=== PATIENT | female | born 1960 | race Caucasian/White ===

== ENCOUNTER → 2018-07-23 | Outpatient (CLI) | payer BC ==
[2018-07-23 14:19] LABS: BASOPHILS % (AUTO) 0 % (0-10); EOSINOPHILS # (AUTO) 0.1 10^3/uL (0.0-0.3); EOSINOPHILS % (AUTO) 2 % (0-10); HEMATOCRIT 43 % (35-52); HEMOGLOBIN 14.1 G/DL (11.5-16.0); LYMPHOCYTES # (AUTO) 2.6 X 10^3 (1.0-4.0); LYMPHOCYTES % (AUTO) 33 % (12-44); MEAN CORPUSCULAR HEMOGLOBIN 30 PG (25-34); MEAN CORPUSCULAR HGB CONC 33 G/DL (32-36); MEAN CORPUSCULAR VOLUME 92 FL (80-99); MEAN PLATELET VOLUME 10.8 FL (7.4-10.4); MONOCYTES # (AUTO) 0.6 X 10^3 (0.0-1.0); MONOCYTES % (AUTO) 8 % (0-12); NEUTROPHILS # (AUTO) 4.5 X 10^3 (1.8-7.8); NEUTROPHILS % (AUTO) 58 % (42-75); PLATELET COUNT 223 10^3/uL (130-400); RED CELL DISTRIBUTION WIDTH 13.1 % (10.0-14.5); WHITE BLOOD COUNT 7.8 10^3/uL (4.3-11.0)
[2018-07-23 14:38] LABS: ALANINE AMINOTRANSFERASE 21 U/L (0-55); ALBUMIN 4.2 GM/DL (3.2-4.5); ALKALINE PHOSPHATASE 78 U/L (40-136); BILIRUBIN,TOTAL 0.2 MG/DL (0.1-1.0); BUN/CREATININE RATIO 20; CALCIUM 9.5 MG/DL (8.5-10.1); CARBON DIOXIDE 21 MMOL/L (21-32); CHLORIDE 105 MMOL/L (98-107); GFR ESTIMATED > 60; GLUCOSE 98 MG/DL (70-105); POTASSIUM 4.2 MMOL/L (3.6-5.0); SODIUM 137 MMOL/L (135-145); TOTAL PROTEIN 6.9 GM/DL (6.4-8.2)
[2018-07-23 14:44] LABS: CREATINE KINASE MB 0.6 NG/ML (<6.6)
== END ==
LOC: CARD 13:53
PROVIDERS: ATTEND Nurse Practitioner Family
DX: R07.9 Chest pain, unspecified (principal)
CPT/HCPCS: 36415; 80053; 82553; 84484; 85025; 93005

== ENCOUNTER → 2018-09-09 | Outpatient (CLI) | payer BC ==
--- NOTE | 2018-09-09 16:43 | Diagnostic Imaging Report ---
INDICATION: Routine screening. COMPARISON: 09/13/2011. TECHNIQUE: 2D and 3D bilateral screening mammography was performed with CAD. FINDINGS: Scattered fibroglandular densities are identified bilaterally. The parenchymal pattern is stable. No dominant mass or malignant appearing microcalcifications are seen. The axillae are unremarkable. IMPRESSION: No mammographic features suspicious for malignancy are identified. ACR BI-RADS Category 2: Benign findings. Result letter will be mailed to the patient. Note: At least 10% of breast cancer is not imaged by mammography. Dictated by: Dictated on workstation # [id number]
== END ==
LOC: RAD 11:38
PROVIDERS: ATTEND Nurse Practitioner Family
DX: Z12.31 Encounter for screening mammogram for malignant neoplasm of breast (principal)
CPT/HCPCS: 77067

== ENCOUNTER → 2020-06-30 | Outpatient (CLI) | payer BC ==
--- NOTE | 2020-06-30 13:14 | Diagnostic Imaging Report ---
INDICATION: Routine screening. COMPARISON is made with prior mammogram from 09/09/2018. 2-D and 3-D bilateral screening mammography was performed with CAD. Both breasts are heterogeneous dense, limiting sensitivity of mammography. The parenchymal pattern is stable. No mass or malignant appearing microcalcifications are seen. Axillae are unremarkable. IMPRESSION: BI-RADS Category 1 No mammographic features suspicious for malignancy are identified. ACR BI-RADS Category 1: Negative. Result letter will be mailed to the patient. Note: At least 10% of breast cancer is not imaged by mammography. Dictated by: Dictated on workstation # [id number]
== END ==
LOC: RAD 11:00
PROVIDERS: ATTEND Family Medicine
DX: Z12.31 Encounter for screening mammogram for malignant neoplasm of breast (principal)
CPT/HCPCS: 77063; 77067

== ENCOUNTER → 2020-09-15 | Outpatient (CLI) | payer BC ==
--- NOTE | 2020-09-15 14:44 | Diagnostic Imaging Report ---
INDICATION: Right knee pain. Time of exam 11:03 AM 3 views right knee demonstrate normal alignment. There is medial compartmental degenerative change with joint space narrowing and marginal spurring. There is some spurring of the tibial spines. No fracture, dislocation or effusion is detected. IMPRESSION: Medial compartmental degenerative change. No acute bony abnormality is detected. Dictated by: Dictated on workstation # [id number]
== END ==
LOC: RAD 10:38
PROVIDERS: ATTEND Nurse Practitioner Family
DX: M17.11 Unilateral primary osteoarthritis, right knee (principal)
CPT/HCPCS: 73562

== ENCOUNTER → 2020-11-11 | Outpatient (CLI) | payer BC ==
--- NOTE | 2020-11-11 16:26 | Diagnostic Imaging Report ---
CLINICAL INDICATION: Patient with headache on the left side x1 month. Patient has disk disease. EXAM: MRI of the brain performed without IV contrast. Sequences include axial DWI, ADC map, axial T2, axial FLAIR, axial T1, coronal gradient echo, and sagittal T1. COMPARISON: None. FINDINGS: There is no evidence of acute cerebral infarct, intracranial hemorrhage, or gross mass effect. The brain parenchymal volume appears appropriate for patient's age. There are a few focal areas of high T2 signal white matter changes involving both cerebral hemispheres, likely representing chronic small vessel ischemic disease. There is normal dan-white matter distinction. There is no significant midline shift or herniation. The [place] of [place]ory vascular structures show no gross abnormality as visualized. The pituitary gland, sella, and suprasellar regions are unremarkable as visualized. There is no evidence of hydrocephalus. The basal cisterns are unremarkable. The skull, extracranial soft tissue, and orbits are unremarkable. The paranasal sinuses are unremarkable. Temporal bones show no significant abnormality. IMPRESSION: 1: There is no evidence of acute intracranial process. 2: Mild age-related brain parenchymal changes including mild chronic small vessel ischemic disease. Dictated by: Dictated on workstation # [id number]
--- NOTE | 2020-11-14 18:32 | Diagnostic Imaging Report ---
Clinical indication: Patient with headache involving the left side x1 month. Disk disease. Exam: MRI of the cervical spine performed without IV contrast. Sequences include sagittal T1, sagittal T2, sagittal stir, sagittal T2 fat-sat and axial T2. Of note, axial T2 sequences were performed on 11/14/2020 and added on to this exam. Comparison: MRI of the cervical spine without contrast dated 06/06/2011. Findings: There is no acute cervical spine fracture. There is Modic type II degenerative signal changes involving the C4-C5 and C5-C6 endplates. Limited visualization of posterior fossa and cervical spinal cord shows no significant abnormality. There is no significant paraspinal soft tissue abnormality. There is progression of degenerative spurs anteriorly involving the mid cervical spine. C1-C2: There are degenerative spurs involving the atlantoodontoid interval anteriorly with no significant central canal narrowing. C2-C3: There is mild to moderate bilateral facet arthropathy which is slightly progressed. There is no significant central spinal canal or neural foramen narrowing. C3-C4: There is interval development of a mild diffuse disk bulge and small left-sided uncinate spurs. There is mild left neural foramen narrowing. There is no significant right neural foramen narrowing. There is minimal encroachment upon the central canal anteriorly. C4-C5: There is interval development of grade 1 retrolisthesis of C4 on C5. There is development of a diffuse disk bulge and bilateral uncinate spurs. There is moderate loss of disk space height. There is mild to moderate central canal stenosis, moderate to severe right neural foramen narrowing and mild left neural foramen narrowing which has progressed in the interim. C5-C6: There is interval development of mild grade 1 retrolisthesis of C5 on C6. There is increased size of the diffuse disk bulge with moderate to severe loss of disk space height which has progressed. There is severe bilateral neural foramen narrowing and moderate central canal stenosis which has progressed. C6-C7: There is development of a subtle posterior disk bulge. There is progression of mild bilateral neural foramen narrowing and ligamentum flavum buckling. There is no significant central spinal canal or neural foramen narrowing. C7-T1: There is progression of mild bilateral facet arthropathy. There is no significant central spinal canal or neural foramen narrowing. IMPRESSION: 1: There is no acute cervical spine fracture. 2: There is interval progression of cervical spine degenerative disk disease which is most pronounced at the C3-C6 levels. 3: There is interval progression of grade 1 retrolisthesis of C4 on C5. There is interval development of a diffuse disk bulge with mild to moderate central canal stenosis, moderate to severe right neural foramen narrowing and mild left neural foramen narrowing. 4: There is interval development of grade 1 retrolisthesis of C5 on C6, increased diffuse disk bulge. There is progression of severe C5-C6 bilateral neural foraminal narrowing and moderate central canal stenosis. Dictated by: Dictated on workstation # [id number]
== END ==
LOC: RAD 13:53
PROVIDERS: ATTEND Family Medicine
DX: G31.1 Senile degeneration of brain, not elsewhere classified (principal); I67.82 Cerebral ischemia; M50.31 Other cervical disc degeneration, high cervical region; M50.121 Cervical disc disorder at C4-C5 level with radiculopathy; M50.122 Cervical disc disorder at C5-C6 level with radiculopathy; M43.12 Spondylolisthesis, cervical region; M48.02 Spinal stenosis, cervical region
CPT/HCPCS: 70551; 72141

== ENCOUNTER 2020-12-15 13:14 | Outpatient (RCR) | payer BC | END 2020-12-15 13:45 | disposition home or self-care (01) | PROVIDERS: ATTEND Family Medicine | DX: M54.2 Cervicalgia (principal); R51.9 Headache, unspecified; Z87.39 Personal history of other diseases of the musculoskeletal system and connective tissue ==

== ENCOUNTER → 2022-04-19 | Outpatient (CLI) | payer BC ==
--- NOTE | 2022-04-19 16:54 | Diagnostic Imaging Report ---
MRI RT lower ext joint w/o TECHNIQUE: Multiplanar, multisequence MR imaging of the right knee was performed without contrast. COMPARISON: Right knee radiographs of 09/15/2020 INDICATION: Right knee pain. FINDINGS: MENISCI Medial meniscus: Diffuse degenerative free edge truncation throughout the entire medial meniscus. This is most noticeable in the body of the medial meniscus. Lateral meniscus: Normal. LIGAMENTS ACL: Intact. PCL: Intact. MCL: Intact. LCL: The lateral collateral ligamentous complex is intact. EXTENSOR MECHANISM The extensor mechanism is intact. CARTILAGE Medial compartment: Diffuse full-thickness articular cartilage loss throughout the weightbearing aspects of the medial compartment. Subchondral bone marrow edema is present on both sides of the joint. Lateral compartment: The lateral compartment articular cartilage is preserved without high-grade chondromalacia. Patellofemoral compartment: The patellofemoral articular cartilage is well preserved without high-grade chondromalacia. BONE No fracture, stress fracture or osteonecrosis. SOFT TISSUE Large knee joint effusion. Small Bowers's cyst has fluid tracking away from the sac likely due to rupture. IMPRESSION: 1. Severe degenerative arthritis in the medial compartment with diffuse full-thickness articular cartilage loss. 2. There is associated degenerative tearing throughout the free edge of the medial meniscus. 3. Large knee joint effusion. 4. Small ruptured Bowers's cyst. Dictated by: Dictated on workstation # [id number]
== END ==
LOC: RAD 09:49
PROVIDERS: ATTEND Nurse Practitioner Family
DX: M17.11 Unilateral primary osteoarthritis, right knee (principal); M23.231 Derangement of other medial meniscus due to old tear or injury, right knee; M66.0 Rupture of popliteal cyst
CPT/HCPCS: 73721

== ENCOUNTER 2022-04-26 10:18 | Day surgery (SDC) | payer BC ==
[~2022-04-26] VITALS: Ht 170.2 cm; Wt 80.6 kg
[~2022-04-26 10:18] MED LIST: HEParin 1000 UNIT/ML (10ML VIAL) FOR BOLUS ONE; MIDAZOLAM 5 MG/5 ML (VERSED) VIAL ONE; NITRO DRIP 25000 MCG/D5W 250 ML IV ONE; VERAPAMIL 5 MG/2 ML (CALAN) VIAL IV ONE; fentaNYL INJ 100 MCG/2 ML AMP ONE
--- NOTE | 2022-04-26 10:25 | Pre-Op Note & Conscious Sedat ---
Pre-Operative Progress Note Date H&P Reviewed: Apr 26, 2022 Time H&P Reviewed: 10:24 History & Physical: H&P Reviewed, Patient Examed, No changes noted Pre-Op Diagnosis: Anterior STEMI Conscious Sedation Pre-Proced ASA Score 2 For ASA 3 and 4: Consider anesthesia and medical clearance. Also, for patients with a history of failed moderate sedation consider anesthesia. Airway Lungs Heart ASA score ASA 1: a normal healthy patient ASA 2: a patient with a mild systemic disease (mid diabetes, controlled hypertension, obesity ASA 3: a patient with a severe systemic disease that limits activity (angina, COPD, prior Myocardial infarction) ASA 4: a patient with an incapacitating disease that is a constant threat to life (CHF, renal failure) ASA 5: a moribund patient not expected to survive 24 hrs. (ruptured aneurysm) ASA 6: a declared brain- patient whose organs are being harvested. For emergent operations, add the letter E after the classification Mallampati Classification Grade 1 Sedation Plan Analgesia, Amnesia, Plan communicated to team members, Discussed options with patient/fam, Discussed risks with patient/fam The patient is an appropriate candidate to undergo the planned procedure, sedation, and anesthesia. The patient immediately re-assessed prior to indication. Given her current clinical status, she is considered severely frail. She has no history of heart failure. TERESSA GROSSMAN JR, MD Apr 26, 2022 10:25
--- NOTE | 2022-04-26 10:31 | History & Physical ---
JAIDA FIELDS 04/26/22 1031: History of Present Illness History of Present Illness Reason for visit/HPI Anam is a 62 year old female with no prior cardiac history presenting from [facility] with chest pain and SOB. EKG revealed ST elevation and she was transported to the via [facility] by EMS. Her chest pain began at 8:30am radiating into her shoulder. She had been SOB for two days prior to the onset of chest pain. She has never had these symptoms before. She does not smoke but does have a family history of heart disease. Date of Admission 04/26/22 Date Seen by a Provider: Apr 26, 2022 Time Seen by a Provider: 10:30 I consulted on this patient on 04/26/22 10:27 Attending Physician Nataliya Forte MD Admitting Physician Admitting Physician: Attending Physician: Teressa Subramanian Jr, MD Consult Allergies and Home Medications Allergies Coded Allergies: No Known Drug Allergies (Unverified , 04/26/22) Past Guuqdye-Rtnfql-Uugjia Hx Patient Social History Smoking Status: Never a Smoker Family Medical History Heart Disease Review of Systems Respiratory: dyspnea on exertion, short of breath Cardiovascular: chest pain Physical Exam Vital Signs Capillary Refill : Height, Weight, BMI Height: '" Weight: lbs. oz. kg; BMI Method: TERESSA SUBRAMANIAN JR, MD 04/26/22 1244: History of Present Illness History of Present Illness Reason for visit/HPI Dr. Subramanian, I had the pleasure of seeing Zabrina in the cardiac catheterization laboratory today. She has no known history of coronary artery disease but does have a cardiac risk factor of hypertension. For the past couple of days she has been experiencing increasing shortness of breath. She denies a cough, fever or chills. She did not seek medical attention. Then this morning she was making her bed and suddenly developed substernal chest tightness. This was in the center of her chest. This radiated to her shoulder. This may have made her feel somewhat more short of breath. She became concerned and went to the emergency room at [facility] for further evaluation. Her el ectrocardiogram showed sinus rhythm with ST elevation in V1 and V2 and ST depression in the lateral limb leads and lateral chest leads. A code STEMI was called and she was transported to our hospital for emergency cardiac catheterization. She denies any previous history of this sort of chest discomfort. She denies paroxysmal nocturnal dyspnea, insomnia, palpitations, lightheadedness, syncope, or ankle edema. Allergies and Home Medications Allergies Coded Allergies: No Known Drug Allergies (Unverified , 04/26/22) Patient Home Medication List Home Medication List Reviewed: Yes Past Kdepdec-Qmzpxc-Qxtnuo Hx Patient Social History Marrital Status: Smoking Status: Former Smoker Family Medical History Heart Disease Review of Systems Constitutional: see HPI Review of 10 organ systems is as per the history of present illness, otherwise negative. Physical Exam General Appearance: No Apparent Distress Comments Dr. Subramanian: General: Alert. No acute distress. Well nourished and appears stated age. Eye: Extraocular movements are intact. Conjunctivae are clear. There are no xanthelasma. HENT: Normocephalic. Atraumatic. Carotid pulsations 2/2 without bruits. Neck: Jugular venous pressure does not appear elevated. No thyromegaly appreciated. Respiratory: Lungs are clear to auscultation. Respirations are non-labored. Breath sounds are equal. Symmetrical chest wall expansion. Cardiovascular: Normal rate. Regular rhythm. No murmur. No gallop. Point of maximal impulse is not appear displaced. Good pulses equal in all extremities. No edema. Gastrointestinal: Soft. Normal bowel sounds. Skin: Skin turgor is normal. There is no pallor. Musculoskeletal: No kyphosis or scoliosis appreciated. Neurologic: Alert and oriented to person, place, time. Cranial nerves 3-12 appear grossly intact. The patient has good motor tone strength in the upper and lower extremities bilaterally. Psychiatric: Cooperative. Appropriate mood & affect. Assessment/Plan Assessment and Plan Problems: (1) Chest pain Assessment & Plan: Exact etiology unclear. She underwent a cardiac catheterization that showed mild to moderate disease in the left anterior descending coronary artery but no acute vessel closure and no obstructive disease. I suspect her chest discomfort could be due to gastroesophageal reflux disease. She was taking famotidine at home. I will change this over to pantoprazole. I have also ordered a D-dimer to screen for possible pulmonary embolism. (2) Coronary artery disease with unstable angina pectoris Assessment & Plan: She does have coronary artery disease noted at cardiac catheterization but as above, this is nonobstructive. She could have possibly had coronary spasm at the site of the atherosclerosis leading to the ST changes and her chest discomfort. However, this does not appear to be an ST elevation myocardial infarction. I recommend she start on aspirin and statin medication. I will resume her beta-ej that she was taking at home. (3) Primary hypertension Assessment & Plan: I will resume the metoprolol that she was taking at home. (4) Gastroesophageal reflux disease without esophagitis Assessment & Plan: I will intensify her therapy by changing her H2 ej over to a proton pump inhibitor in the event the reflux disease is causing or at least contributing to her chest discomfort. (5) Acquired hypothyroidism Assessment & Plan: I have ordered a TSH level. Resume thyroud medication. Admission Diagnosis Admission Status: Observation Supervisory-Addendum Brief Verification & Attestation Participated in pt care: history, MDM, physical Personally performed: exam, history, MDM Care discussed with: Medical Student Procedures: n/a Results interpretation: Verified all documentation I independently performed my own history and physical and physical examination. I formulated my own impression and plan. I also reviewed the documentation of the medical student. JAIDA FIELDS Apr 26, 2022 10:31 TERESSA SUBRAMANIAN JR, MD Apr 26, 2022 12:44
[2022-04-26] MEDS ORDERED: NS IV 1000 ML 1,000 ML ONE (10:50)
[2022-04-26] MEDS ORDERED: LIDOCAINE 1% INJ 30 ML (XYLOCAINE) VIAL ONE (10:50)
[2022-04-26] MEDS ORDERED: HEParin (CATH LAB) 2,000 ML IV ONE (10:50)
[2022-04-26] MEDS ORDERED: ZOLPIDEM 5 MG (AMBIEN) TAB PO PRN (11:00)
[2022-04-26] MEDS ORDERED: ACETAMINOPHEN 500 MG TAB (TYLENOL) PO PRN (11:00)
[2022-04-26] MEDS ORDERED: ANTACID SUSP 30 ML UDC (MYLANTA) PO PRN (11:00)
--- NOTE | 2022-04-26 11:42 | Cardiac Cath Report ---
CARDIAC CATHETERIZATION DATE OF PROCEDURE: 04/26/2022 INDICATION: Abnormal electrocardiogram consistent with a possible anterior ST elevation myocardial infarction. HISTORY: The patient is a 62 year old female with no previously known history of coronary artery disease. She presented to [facility] earlier this morning with chest pain. Her electrocardiogram showed anterior ST elevation with lateral ST depression. A code STEMI was called from the outside hospital and she was transferred to our hospital for emergent cardiac catheterization. Given her current clinical status, she is considered severely frail. She has no history of heart failure. PROCEDURES PERFORMED: 1. Left heart catheterization with hemodynamic measurements. 2. Diagnostic [place]-cree coronary angiography. PROCEDURE DESCRIPTION: After informed consent and in the fasting state, left heart catheterization was performed through the right radial artery utilizing a 6 Israeli system by percutaneous approach. A 5 Israeli JR4 catheter and a 6 Israeli CLS 3.5 guide catheter were utilized for the diagnostic portion of the procedure. All catheters were exchanged over a guidewire. Following the procedure, a vascular band was applied to the radial artery access site and the sheath was removed with good hemostasis. RESULTS: HEMODYNAMICS: The aortic pressure was 109/62 mmHg. The left ventricular pressure was 124/0 mmHg with a left ventricular end-diastolic pressure of 5 mmHg. There was no significant pressure gradient upon pullback across the aortic valve. CORONARY ANGIOGRAPHY: Left main coronary artery: Free of significant disease. Left anterior descending coronary artery: There was a 50% stenosis in the mid segment at the takeoff of the first septal alley tender with JESSICA-3 flow. Left circumflex coronary artery: Free of significant disease. Right coronary artery: Dominant and free of significant disease. IMPRESSION: 1. Normal left heart pressures. 2. There was a 50% stenosis in the mid left anterior descending coronary artery but no evidence of an acute thrombotic occlusion to explain the ST elevation on the electrocardiogram. 3. I will obtain an echocardiogram later today to assess her left ventricular systolic function. 4. I suspect the patient may have had noncardiac chest pain. Certain portions of this document may have been dictated utilizing voice recognition technology. Inherent to this technology, typographical and grammatical errors may exist. As much as I am diligent to identify and correct these mistakes, some errors may remain in the document. TERESSA GROSSMAN JR, MD Apr 26, 2022 11:42
[2022-04-26] MEDS ORDERED: PANTOPRAZOLE 40 MG (PROTONIX) TAB PO NR (11:45)
[2022-04-26 13:23] LABS: BASOPHILS % (AUTO) 0 % (0-10); EOSINOPHILS # (AUTO) 0.1 10^3/uL (0.0-0.3); EOSINOPHILS % (AUTO) 0 % (0-10); HEMATOCRIT 42 % (35-52); HEMOGLOBIN 13.8 g/dL (11.5-16.0); LYMPHOCYTES # (AUTO) 1.9 10^3/uL (1.0-4.0); LYMPHOCYTES % (AUTO) 14 % (12-44); MEAN CORPUSCULAR HEMOGLOBIN 31 pg (25-34); MEAN CORPUSCULAR HGB CONC 33 g/dL (32-36); MEAN CORPUSCULAR VOLUME 94 fL (80-99); MEAN PLATELET VOLUME 9.9 fL (9.0-12.2); MONOCYTES # (AUTO) 1.1 10^3/uL (0.0-1.0); MONOCYTES % (AUTO) 8 % (0-12); NEUTROPHILS # (AUTO) 10.4 10^3/uL (1.8-7.8); NEUTROPHILS % (AUTO) 77 % (42-75); PLATELET COUNT 147 10^3/uL (130-400); WHITE BLOOD COUNT 13.6 10^3/uL (4.3-11.0)
[2022-04-26 13:27] LABS: ALBUMIN 3.7 GM/DL (3.2-4.5); POTASSIUM 3.9 MMOL/L (3.6-5.0)
[2022-04-26 13:28] LABS: CALCIUM 8.8 MG/DL (8.5-10.1)
[2022-04-26 13:30] LABS: TOTAL PROTEIN 6.4 GM/DL (6.4-8.2)
[2022-04-26 13:31] LABS: BILIRUBIN,TOTAL 0.4 MG/DL (0.1-1.0)
[2022-04-26 13:33] LABS: CREATININE SERUM 0.66 MG/DL (0.60-1.30)
[2022-04-26] MEDS ORDERED: IOHEXOL 350 MG/ML 100 ML (OMNIPAQUE 350) VIAL IV ONE (14:00)
[2022-04-26] MEDS ORDERED: NS 100 ML (IVPB) BAG IV ONE (14:00)
[2022-04-26] MEDS ORDERED: ENOXAPARIN 40 MG/0.4 ML (LOVENOX) SYR SC SCH (14:00)
[2022-04-26] MEDS ORDERED: HOLD METFORMIN - RECEIVED CONTRAST 20 ML VIAL IV SCH (14:00)
[2022-04-26] MEDS ORDERED: FAMO20TA3 PO (14:25)
[2022-04-26] MEDS ORDERED: LEVO50TA6 PO ×2 (14:25)
[2022-04-26] MEDS ORDERED: MTP25TSR PO (14:25)
[2022-04-26] MEDS ORDERED: CHOL500050 PO (14:25)
[2022-04-26] MEDS ORDERED: CELE-63 PO (14:25)
[2022-04-26] MEDS ORDERED: ESTR1TAB27 PO (14:25)
[2022-04-26] MEDS ORDERED: OMEG12002 PO (14:25)
[2022-04-26] MEDS ORDERED: HYDR25TA4 PO (14:25)
[2022-04-26] MEDS ORDERED: MELA10TA2 PO (14:25)
--- NOTE | 2022-04-26 14:38 | Diagnostic Imaging Report ---
INDICATION: Elevated D-dimer, dyspnea TECHNIQUE: Multiple contiguous axial images were obtained through the chest after uneventful bolus administration of intravenous contrast. 3D reconstructed CTA MIP acquisitions were also performed. Auto Exposure Controls were utilized during the CT exam to meet ALARA standards for radiation dose reduction. COMPARISON: There is no prior CT for comparison. There are bilateral pulmonary emboli, including saddle component. There is some RV dilatation and septal bowing suggesting right heart strain. There is no adenopathy in the mediastinum or erica. There are some coronary calcifications. The thoracic aorta shows no aneurysm or dissection. Great vessel origins are patent. There is no pleural or pericardial fluid. Visualized portions of the upper abdomen appear unremarkable. Lung parenchymal windows demonstrated no pulmonary parenchymal infiltrates or discrete nodules. IMPRESSION: Bilateral pulmonary emboli, including saddle component, with evidence of some degree of right heart strain. Results were called to the referring physician at the time of dictation. Dictated by: Dictated on workstation # [id number]
[2022-04-26] MEDS: APIXABAN 5 MG (ELIQUIS) TABLET PO SCH ×2 (15:05→21:20)
[2022-04-26] MEDS: NS IV 1000 ML 1,000 ML IV SCH ×2 (18:43→21:00)
--- NOTE | 2022-04-26 19:51 | History & Physicial ---
History of Present Illness History of Present Illness Reason for visit/HPI Anam is a 62 y/o female who is known to me from clinic. She presented to her local hospital with acute onset of shortness of breath, chest pain, diaphoresis and nausea that started early this morning while making her bed. She reports that she had been having intermittent episodes of shortness of breath over the past week. She notes that she had recently traveled by vehicle with her spouse to the [facility]. She reports that the shortness of breath started after the travel by a week or so. [place], thought to have had a heart attack and was transferred to the care of Dr. Subramanian for emergent eval and heart c atheterization. The heart cath did not reveal any obstructive disease and further work-up revealed pulmonary emboli. She was admitted to the icu for management. She currently is not complaining of shortness of breath or chest pain, does have some aching in her lower extremities. Date of Admission 04/26/2022 Date Seen by a Provider: Apr 26, 2022 Time Seen by a Provider: 18:30 Attending Physician Bobby Forte MD Admitting Physician Admitting Physician: Dr. Subramanian Attending Physician: Werner Subramanian Jr, MD Consult Allergies and Home Medications Allergies Coded Allergies: No Known Drug Allergies (Unverified , 04/26/22) Patient Home Medication List Home Medication List Reviewed: Yes Celecoxib (Celecoxib) 200 Mg Capsule, 200 MG PO DAILY, (Reported) Entered as Reported by: SKYE BURNETT on 04/26/221424 Last Action: Held Cholecalciferol (Vitamin D3) (Vitamin D3) 125 Mcg (5000 Unit) Capsule, 125 MCG PO HS, (Reported) Entered as Reported by: SKYE BURNETT on 04/26/221424 Last Action: Reviewed Estradiol (Estrace Tablet) 1 Mg Tablet, 1 MG PO DAILY, (Reported) Entered as Reported by: SKYE BURNETT on 04/26/221424 Last Action: Held Famotidine (Acid Physical Therapist Technician (FAMOTIDINE)) 20 Mg Tablet, 20 MG PO DAILY, (Reported) Entered as Reported by: SKYE BURNETT on 04/26/221424 Last Action: Held Hydrochlorothiazide (Hydrochlorothiazide) 25 Mg Tablet, 12.5 MG PO DAILY, (Reported) Entered as Reported by: SKYE BURNETT on 04/26/221424 Last Action: Reviewed Levothyroxine Sodium (Levothyroxine Sodium) 50 Mcg Tablet, 50 MCG PO ESTEVES,MO,WE,FR,SA, (Reported) Entered as Reported by: SKYE BURNETT on 04/26/221424 Last Action: Continued Levothyroxine Sodium (Levothyroxine Sodium) 50 Mcg Tablet, 75 MCG PO , (Reported) Entered as Reported by: SKYE BURNETT on 04/26/221424 Last Action: Continued Melatonin (Melatonin) 10 Mg Tablet, 10 MG PO HS, (Reported) Entered as Reported by: SKYE BURNETT on 04/26/221424 Last Action: Continued Metoprolol Succinate (Metoprolol Succinate) 25 Mg Tab.er.24h, 25 MG PO HS, (Reported) Entered as Reported by: SKYE BURNETT on 04/26/221424 Last Action: Continued Frannie-3/Dha/Epa/Fish Oil (Fish Oil 1,200 mg Softgel) 1,200 Mg (144 Mg-216 Mg) Capsule, 1,200 MG PO HS, (Reported) Entered as Reported by: SKYE BURNETT on 04/26/221424 Last Action: Converted Past Uxsbogl-Kpcbke-Wqcccg Hx Patient Social History Marrital Status: Number of Children: 1 Living Status: [place] Smoking Status: Former Smoker Have you traveled recently?: Yes Where was recent travel?: [facility] ([place]) Alcohol Use?: Yes Substance type: Caffeine Pt feels they are or have been: No Immunizations Up To Date Date of Influenza Vaccine: Apr 10, 2022 Seasonal Allergies Seasonal Allergies: Yes Surgeries Yes Hysterectomy (2019), Orthopedic (2020) Respiratory No Currently Using CPAP: No Currently Using BIPAP: No Cardiovascular Yes Hypertension Neurological No Reproductive System : No Genitourinary No Gastrointestinal Yes Gastroesophageal Reflux Musculoskeletal Yes Arthritis Endocrine History of Endocrine Disorders: Yes Endocrine Disorders: Hypothyroidsim Are Your Blood Sugars Over 250: No HEENT History of HEENT Disorders: No Loss of Vision: Denies Hearing Impairment: Denies Cancer No Psychosocial History of Psychiatric Problem: No Integumentary History of Skin or Integumenta: No Blood Transfusions History of Blood Disorders: No Adverse Reaction to a Blood Tr: No Reviewed Nursing Assessment Reviewed/Agree w Nursing PMH: Yes Family Medical History Significant Family History: Heart Disease, Diabetes, Hypertension Review of Systems Constitutional: No chills; diaphoresis (prior to admission); No dizziness, No fever, No malaise, No weakness EENTM: No hearing loss, No hoarseness, No throat pain Respiratory: No cough; dyspnea on exertion; No short of breath, No wheezing Cardiovascular: No chest pain (pt had shortness of breath and chest pain prior to admission) Gastrointestinal: No abdominal pain, No constipation, No diarrhea, No nausea Genitourinary: no symptoms reported : No Musculoskeletal: No back pain; joint pain (right knee pain) Skin: no symptoms reported Psychiatric/Neurological: No Symptoms Reported All Other Systems Reviewed Negative Unless Noted: Yes Physical Exam Vital Signs Vital Signs - First Documented 04/26/22 04/26/22 04/26/22 11:10 11:15 11:23 Temp 36.4 Pulse 109 Resp 13 B/P (MAP) 120/79 (93) Pulse Ox 95 O2 Delivery Nasal Cannula O2 Flow Rate 2.00 Capillary Refill : Less Than 3 Seconds Height, Weight, BMI Height: '" Weight: lbs. oz. kg; 28.16 BMI Method: General Appearance: No Apparent Distress, WD/WN HEENT: PERRL/EOMI, Pharynx Normal Neck: Full Range of Motion, Supple Respiratory: Chest Non Tender, Lungs Clear, Normal Breath Sounds, No Accessory Muscle Use, No Respiratory Distress Cardiovascular: Regular Rate, Rhythm Gastrointestinal: Normal Bowel Sounds, Non Tender, Soft Rectal: Deferred Back: Normal Inspection Extremity: Normal Capillary Refill, Normal Range of Motion, No Pedal Edema, Other (slightly ttp right popliteal fossa and left popliteal fossa) Neurologic/Psychiatric: Alert, Oriented x3, No Motor/Sensory Deficits, Normal Mood/Affect Skin: Normal Color, Warm/Dry Lymphatic: No Adenopathy Assessment/Plan Assessment and Plan as documented below Problems: (1) Pulmonary emboli Status: Acute Qualifiers: Qualified Codes: I26.92 - Saddle embolus of pulmonary artery without acute cor pulmonale Assessment & Plan: Bilateral pulmonary embolism with saddle component. pt was started on eliquis, will continue with this treatment and pt to be on eliquis for at least 6 months post embolism. Lower extremity US pending for the morning. CT scan findings as follows: There are bilateral pulmonary emboli, including saddle component. There is some RV dilatation and septal bowing suggesting right heart strain. There is no adenopathy in the mediastinum or erica. There are some coronary calcifications. The thoracic aorta shows no aneurysm or dissection. Great vessel origins are patent. There is no pleural or pericardial fluid. Visualized portions of the upper abdomen appear unremarkable. Lung parenchymal windows demonstrated no pulmonary parenchymal infiltrates or discrete nodules. IMPRESSION: Bilateral pulmonary emboli, including saddle component, with evidence of some degree of right heart strain. (2) Chest pain Status: Acute Qualifiers: Qualified Codes: R07.89 - Other chest pain Assessment & Plan: Heart catheterization - per Dr. Subramanian report - mild to mod disease LAD. DDimer positive Pulmonary embolus (3) Coronary artery disease with unstable angina pectoris Status: Acute Qualifiers: Qualified Codes: I25.110 - Atherosclerotic heart disease of [place] coronary artery with unstable angina pectoris Assessment & Plan: As above -non obstructive mild to mod disease of LAD - will need blood pressure control, cholesterol to be controlled with statin therapy (4) Primary hypertension Status: Chronic Assessment & Plan: Pt on hctz and metoprolol at home, the metoprolol was restarted on admission (5) Gastroesophageal reflux disease without esophagitis Status: Chronic Assessment & Plan: pt changed from pepcid to pantoprazole (6) Acquired hypothyroidism Status: Chronic Assessment & Plan: resumed home levothyroxine tonight - monitor labs, add Free T4 to blood in lab Admission Diagnosis Admission Status: Other BOBBY FORTE MD Apr 26, 2022 19:51
[2022-04-26] MEDS ORDERED: ROSUVASTATIN 20 MG (CRESTOR) TABLET PO SCH (21:00)
[2022-04-26] MEDS ORDERED: ROSUVASTATIN 10 MG (CRESTOR) TABLET PO SCH (21:00)
[2022-04-26] MEDS ORDERED: OMEGA 3 (FISH OIL) 1000 MG CAP PO SCH (21:00)
[2022-04-26] MEDS ORDERED: MELATONIN 10 MG TABLET PO SCH (21:00)
[2022-04-26] MEDS ORDERED: NON-FORMULARY MEDICATION 1 EA EA (Omega-3/Dha/Epa/Fish Oil (Fish Oil 1,200 mg Softgel) 1,2 PO SCH (21:00)
[2022-04-27 05:57] LABS: ALBUMIN 3.6 GM/DL (3.2-4.5); HEMATOCRIT 40 % (35-52); HEMOGLOBIN 13.2 g/dL (11.5-16.0); MEAN CORPUSCULAR HEMOGLOBIN 31 pg (25-34); MEAN CORPUSCULAR HGB CONC 33 g/dL (32-36); MEAN CORPUSCULAR VOLUME 94 fL (80-99); MEAN PLATELET VOLUME 10.7 fL (9.0-12.2); PLATELET COUNT 166 10^3/uL (130-400); POTASSIUM 4.1 MMOL/L (3.6-5.0); WHITE BLOOD COUNT 11.1 10^3/uL (4.3-11.0)
[2022-04-27 05:58] LABS: CALCIUM 8.9 MG/DL (8.5-10.1)
[2022-04-27 06:00] LABS: TOTAL PROTEIN 6.1 GM/DL (6.4-8.2)
[2022-04-27 06:01] LABS: BILIRUBIN,TOTAL 0.5 MG/DL (0.1-1.0)
[2022-04-27 06:03] LABS: CREATININE SERUM 0.76 MG/DL (0.60-1.30)
[2022-04-27] MEDS ORDERED: LEVOTHYROXINE 50 MCG (LEVOTHROID) TAB PO SCH (06:30)
[2022-04-27] MEDS: APIXABAN 5 MG (ELIQUIS) TABLET PO SCH (08:20)
--- NOTE | 2022-04-27 08:23 | Cardiology Progress Note ---
Subjective Date Seen by Provider: Apr 27, 2022 Time Seen by Provider: 07:50 Subjective/Events-last exam Pt appears comfortable this a.m. She denies SOB, chest pain, and syncope. She does admit to feeling palpitations pretty frequently, usually when she is laying in bed at night. These last for a few seconds at a time. She has taken a water pill in the past and recently experienced some edema while traveling, but does not currently have edema. Dr. Subramanian: I am following her due to coronary artery disease and pulmonary embolism. Her chest discomfort and dyspnea have resolved. Today she states she has had a long history of palpitations. She will feel a fluttering in her chest mainly at night while she is trying to go to sleep. She denies associated complaints. She has not brought this to the attention of her primary provider in the past. She denies syncope or ankle edema. Certain portions of this document may have been dictated utilizing voice recognition technology. Inherent to this technology, typographical and grammatical errors may exist. As much as I am diligent to identify and correct these mistakes, some errors may remain in the document. Focused Exam Respiratory: Lungs Clear, Normal Breath Sounds, No Accessory Muscle Use, No Respiratory Distress Cardiovascular: Regular Rate, Rhythm, No Murmur Skin: normal color, warm/dry Objective-Cardiology Exam Last Set of Vital Signs Vital Signs 04/27/22 04/27/22 04/27/22 07:47 08:00 08:23 Temp 36.5 Pulse 70 Resp 16 B/P (MAP) 115/69 (84) Pulse Ox 95 O2 Delivery Room Air O2 Flow Rate 2.00 I&O Intake and Output 04/27/22 00:00 Intake Total 800 ml Balance 800 ml Intake Oral 800 ml # Voids 2 Daily Weight Change No General: Alert, Oriented X3, Cooperative, No Acute Distress HEENT: Atraumatic, EOMI Neck: Supple Lungs: Clear to Auscultation, Normal Air Movement Heart: Regular Rate, No Murmurs Abdomen: Soft, No Tenderness Extremities: No Edema Skin: No Significant Lesion Neuro: Normal Speech, Normal Tone Psych/Mental Status: Mental Status NL, Mood NL Other physical findings Dr. Subramanian: General: Alert. No acute distress. Eye: No xanthelasma. HENT: Normocephalic. Neck: Jugular venous pressure does not appear elevated. Respiratory: Lungs are clear to auscultation. Respirations are non-labored. Breath sounds are equal. Symmetrical chest wall expansion. Cardiovascular: Normal rate. Regular rhythm. No murmur. No gallop. No edema. Gastrointestinal: Soft. Normal bowel sounds. Skin: Warm. Dry. Neurologic: Alert and oriented to person, place, time. Cranial nerves 3-11 grossly intact. Psychiatric: Cooperative. Appropriate mood & affect. Results Lab Laboratory Tests 04/26/22 13:08 04/27/22 05:11 A/P-Cardiology Admission Diagnosis (1) Chest pain Status: Acute Qualifiers: Qualified Codes: R07.89 - Other chest pain (2) Pulmonary embolism with acute cor pulmonale (3) Coronary artery disease with unstable angina pectoris Status: Acute Qualifiers: Qualified Codes: I25.110 - Atherosclerotic heart disease of [place] coronary artery with unstable angina pectoris (4) Primary hypertension Status: Chronic (5) Gastroesophageal reflux disease without esophagitis Status: Chronic Assessment/Plan (1) Chest pain Assessment & Plan: D-Dimer elevation revealed yesterday; CT showed bilateral pulmonary emboli with possible saddle embolus. Eliquis was started. Venous Doppler study done this a.m. (2) Coronary artery disease with unstable angina pectoris Assessment & Plan: She does have coronary artery disease noted at cardiac catheterization but as above, this is nonobstructive. She was started on aspirin and statin medication. Resumed her beta-ej that she was taking at home. (3) Primary hypertension Assessment & Plan: Resumed the metoprolol that she was taking at home. (4) Gastroesophageal reflux disease without esophagitis Assessment & Plan: switched to pantoprazole (5) Acquired hypothyroidism Assessment & Plan: Resumed thyroid medication. (6) Palpitations Assessment & Plan: May require outpatient monitor. Continue telemetry for now. Diagnosis/Problems Diagnosis/Problems (1) Pulmonary embolism with acute cor pulmonale Assessment & Plan: In retrospect, she did have a long drive about 2 weeks ago. She was also on estrogen replacement therapy but had started to taper this on her own. She is on Eliquis but this may be too expensive for her. I will change this over to Xarelto which she can get through the [address] plan at a markedly reduced rate. (2) Chest pain Status: Acute Assessment & Plan: I suspect this was related to the pulmonary embolism and not coronary artery disease. Qualifiers: Qualified Codes: R07.89 - Other chest pain (3) Coronary artery disease with unstable angina pectoris Status: Acute Assessment & Plan: She has moderate disease of the left anterior descending coronary artery but did not have a myocardial infarction and she has normal ejection fraction. Since she is on Xarelto for the pulmonary embolism, I will hold off on starting aspirin. When she completes the course of therapy for the pulmonary embolism and stops her oral anticoagulation, I would consider starting low strength aspirin. I did start a statin medication due to the coronary artery disease. She was already taking beta-ej at home for hypertension. I will plan to see her in the office in 1 month for follow-up. Qualifiers: Qualified Codes: I25.110 - Atherosclerotic heart disease of [place] coronary artery with unstable angina pectoris (4) Primary hypertension Status: Chronic Assessment & Plan: Continue current outpatient antihypertensive medication. (5) Palpitations Assessment & Plan: Etiology unclear. There is no evidence of Dqhhy-Vbolxzlzh-Nhvsl, Brugada syndrome, or prolonged or short QT on her resting electrocardiogram. From her description, this may just be due to isolated [place] ture beats. If this continues following discharge, we could always consider some sort of external event recorder. (6) Mixed hyperlipidemia Assessment & Plan: She has been started on statin medication in light of the elevated LDL and coronary artery disease detected at cardiac catheterization during this admission. (7) Gastroesophageal reflux disease without esophagitis Status: Chronic Assessment & Plan: I had thought the reflux disease might be contributing to her chest discomfort but now she has been found to have a pulmonary embolism which probably explains her symptoms at the time of admission. She could probably go back to taking famotidine which she was taking prior to admission. Supervisory-Addendum Brief Verification & Attestation Participated in pt care: history, MDM, physical Personally performed: exam, history, MDM, supervision of care Care discussed with: Medical Student Procedures: n/a Results interpretation: Verified all documentation I independently performed my own history and physical and physical examination. I formulated my own impression and plan. I also reviewed the documentation of the medical student. JAIDA FIELDS Apr 27, 2022 08:23 TERESSA SUBRAMANIAN JR, MD Apr 27, 2022 09:05
--- NOTE | 2022-04-27 08:25 | Diagnostic Imaging Report ---
PROCEDURE: US Venous Lower Ext Oracio. TECHNIQUE: Multiple real-time grayscale images were obtained over the lower extremities in various projections, bilaterally. Additional duplex Doppler and color Doppler images were also obtained. INDICATION: Pulmonary embolus. Lower leg pain Bilateral lower extremity venous Doppler 04/27/2022. TECHNIQUE: Waveform and spectral analysis of the lower extremity venous structures. FINDINGS: There is no evidence for deep vein thrombosis with normal compressibility, augmentation and spontaneity of all visualized venous structures. IMPRESSION: 1. No evidence for deep vein thrombosis. Dictated by: Dictated on workstation # [id number]
[2022-04-27] MEDS ORDERED: PANTOPRAZOLE 40 MG (PROTONIX) TAB PO SCH (09:00)
[2022-04-27] MEDS ORDERED: ASPIRIN E.C. 81 MG (ECOTRIN) TAB PO SCH (09:00)
[2022-04-27] MEDS ORDERED: RIVA15TA2 PO (09:00)
[2022-04-27] MEDS ORDERED: ACHD5005 PO (09:12)
[2022-04-27] MEDS ORDERED: ROSU20TA32 PO (09:12)
--- NOTE | 2022-04-27 09:17 | Discharge Summary ---
Diagnosis/Chief Complaint Date of Admission Date of Discharge Discharge Date: Apr 27, 2022 Discharge Time: 1030 Reason Hospital Visit Anam is a 62 y/o female who is known to me from clinic. She presented to her local hospital with acute onset of shortness of breath, chest pain, diaphoresis and nausea that started early this morning while making her bed. She reports that she had been having intermittent episodes of shortness of breath over the past week. She notes that she had recently traveled by vehicle with her spouse to the [facility]. She reports that the shortness of breath started after the travel by a week or so. She was evaluated in the [place] ER, thought to have had a heart attack and was transferred to the care of Dr. Subramanian for emergent eval and heart catheterization. The heart cath did not reveal any obstructive disease and further work-up revealed pulmonary emboli. She was admitted to the icu for management. She currently is not complaining of shortness of breath or chest pain, does have some aching in her lower extremities. Discharge Summary Discharge Physical Examination Allergies: Coded Allergies: No Known Drug Allergies (Unverified , 04/26/22) Vitals & I&Os Vital Signs Date Time Temp Pulse Resp B/P (MAP) Pulse Ox O2 Delivery O2 Flow Rate FiO2 04/27/22 08:23 95 Room Air 04/27/22 08:00 70 16 115/69 (84) 2.00 04/27/22 07:47 36.5 Hospital Course Pending Labs Laboratory Tests 04/27/22 05:11: White Blood Count 11.1, Red Blood Count 4.27, Hemoglobin 13.2, Hematocrit 40, Mean Corpuscular Volume 94, Mean Corpuscular Hemoglobin 31, Mean Corpuscular Hemoglobin Concent 33, Red Cell Distribution Width 13.2, Platelet Count 166, Mean Platelet Volume 10.7, Sodium Level 141, Potassium Level 4.1, Chloride Level 110, Carbon Dioxide Level 20, Anion Gap 11, Blood Urea Nitrogen 11, Creatinine 0.76, Estimat Glomerular Filtration Rate 87, BUN/Creatinine Ratio 14, Glucose Level 114, Calcium Level 8.9, Corrected Calcium 9.2, Total Bilirubin 0.5, Aspartate Amino Transf (AST/SGOT) 39, Alanine Aminotransferase (ALT/SGPT) 72, Alkaline Phosphatase 71, Total Protein 6.1, Albumin 3.6 Discharge Instructions to patient/family Please see electronic discharge instructions given to patient. Discharge Medications Reviewed and agree with Discharge Medication list on patient's Discharge Instruction sheet BOBBY RUFF MD Apr 27, 2022 09:17
--- NOTE | 2022-04-27 09:17 | Discharge Inst-Simple/Standard ---
Discharge Inst-Standard Reconcile Patient Problems Problems Reviewed?: Yes Discharge Medications New, Converted or Re-Newed RX: Transmitted to Pharmacy Patient Instructions/Follow Up Plan of Care/Instructions/FU: follow up with lupe langford beginning of may we will get you scheduled in with hematology follow up with dr. meehan per patient request in the next few months Activity as Tolerated: Yes Discharge Diet: Low Fat/Low Cholesterol Return to The Hospital For: acute worsening shortness of breath, chest pain, or other concerns for lifethreatening illness BOBBY RUFF MD Apr 27, 2022 09:17
[2022-04-27] MEDS ORDERED: RIVAROXABAN 15 MG TABLET (XARELTO) PO SCH (19:00)
[2022-04-27] MEDS ORDERED: VITAMIN D3 125 MCG (5,000 UNITS) CAPSULE PO SCH (21:00)
[2022-05-01] MEDS ORDERED: LEVOTHYROXINE 50 MCG (LEVOTHROID) TAB PO SCH (06:30)
[2022-05-04] MEDS ORDERED: APIXABAN 5 MG (ELIQUIS) TABLET PO SCH (09:00)
== END 2022-04-27 09:37 | disposition home or self-care (01) ==
LOC: CATH 10:18 → ICU 11:05 → CATH 04-27 09:37
PROVIDERS: ATTEND Internal Medicine Cardiovascular Disease
DX: I26.92 Saddle embolus of pulmonary artery without acute cor pulmonale (principal); I25.110 Atherosclerotic heart disease of native coronary artery with unstable angina pectoris; I10 Essential (primary) hypertension; K21.9 Gastro-esophageal reflux disease without esophagitis; E03.9 Hypothyroidism, unspecified; E78.2 Mixed hyperlipidemia; Z79.890 Hormone replacement therapy; Z79.899 Other long term (current) drug therapy; Z87.891 Personal history of nicotine dependence
CPT/HCPCS: 71275; 80053 ×2; 80061; 84443; 85025; 85027; 85379; 87081; 93005; 93458; 93970; C1887; C1894; C8929; 36415; 93306

== ENCOUNTER → 2022-05-21 | Outpatient (CLI) | payer BC ==
[~2022-05-21] MED LIST changes: +ACHD5005 PO; +CELE-63 PO; +CHOL500050 PO; +ESTR1TAB27 PO; +FAMO20TA3 PO; -HEParin 1000 UNIT/ML (10ML VIAL) FOR BOLUS ONE; +HYDR25TA4 PO; +LEVO50TA6 PO; +MELA10TA2 PO; -MIDAZOLAM 5 MG/5 ML (VERSED) VIAL ONE; +MTP25TSR PO; -NITRO DRIP 25000 MCG/D5W 250 ML IV ONE; +OMEG12002 PO; +RIVA15TA2 PO; +ROSU20TA32 PO; -VERAPAMIL 5 MG/2 ML (CALAN) VIAL IV ONE; -fentaNYL INJ 100 MCG/2 ML AMP ONE
== END ==
LOC: CARD 14:01
PROVIDERS: ATTEND Family Medicine
DX: I26.99 Other pulmonary embolism without acute cor pulmonale (principal)
CPT/HCPCS: 93246

== ENCOUNTER 2022-06-29 09:18 | Emergency (ER) | payer BC ==
[~2022-06-29] VITALS: Ht 170 cm; Wt 81.6 kg
[2022-06-29 09:32] LABS: BASOPHILS % (AUTO) 0 % (0-10); EOSINOPHILS # (AUTO) 0.1 10^3/uL (0.0-0.3); EOSINOPHILS % (AUTO) 1 % (0-10); HEMATOCRIT 46 % (35-52); HEMOGLOBIN 15.4 g/dL (11.5-16.0); LYMPHOCYTES # (AUTO) 4.2 10^3/uL (1.0-4.0); LYMPHOCYTES % (AUTO) 41 % (12-44); MEAN CORPUSCULAR HEMOGLOBIN 31 pg (25-34); MEAN CORPUSCULAR HGB CONC 33 g/dL (32-36); MEAN CORPUSCULAR VOLUME 93 fL (80-99); MEAN PLATELET VOLUME 10.3 fL (9.0-12.2); MONOCYTES # (AUTO) 0.7 10^3/uL (0.0-1.0); MONOCYTES % (AUTO) 7 % (0-12); NEUTROPHILS % (AUTO) 50 % (42-75); PLATELET COUNT 239 10^3/uL (130-400); WHITE BLOOD COUNT 10.1 10^3/uL (4.3-11.0)
[2022-06-29 09:41] LABS: ALBUMIN 4.6 GM/DL (3.2-4.5)
[2022-06-29 09:42] LABS: CHLORIDE 102 MMOL/L (98-107); POTASSIUM 3.6 MMOL/L (3.6-5.0); SODIUM 136 MMOL/L (135-145)
[2022-06-29] MEDS: NITROGLYCERIN 0.4 MG SL TABS BTL 25'S SL PRN ×3 (09:42→09:55)
[2022-06-29 09:43] LABS: CALCIUM 10.1 MG/DL (8.5-10.1)
[2022-06-29 09:44] LABS: GLUCOSE 117 MG/DL (70-105); TOTAL PROTEIN 7.7 GM/DL (6.4-8.2)
[2022-06-29 09:45] LABS: CARBON DIOXIDE 20 MMOL/L (21-32); INR 1.9 (0.8-1.4); PROTHROMBIN TIME PATIENT 21.8 SEC (12.2-14.7)
[2022-06-29] MEDS ORDERED: ONDANSETRON 4 MG/2 ML (SDV) Z0FRAN IVP ONE ×2 (09:45→11:15)
[2022-06-29] MEDS ORDERED: ASPIRIN 81 MG CHEW (CHILDREN'S ASA) PO ONE (09:45)
--- NOTE | 2022-06-29 09:45 | ED Chest Pain ---
General Chief Complaint: Chest Pain Stated Complaint: CHEST PAINS Nursing Triage Note: PT AMBULATORY TO ER WITH SO. PT REPORTS L SIDED CHEST PAIN ONSET APPROX 0730 THIS AM, REPORTS PAIN RADIATES TO HER L SHOULDER AND UPPER BACK, DESCRIBES PAIN A PRESSURE/HEAVINESS. REPORTS PALPITATIONS LAST NIGHT. PT STATES DX WITH A PE 2 MONTHS AGO, TAKING XARELTO. Source: patient, old records Exam Limitations: no limitations History of Present Illness Date Seen by Provider: Jun 29, 2022 Time Seen by Provider: 09:22 Initial Comments This 62-year-old woman presents to the emergency room with primary complaint of chest pressure and tightness noted at 730 this morning. She has had some intermittent lesser episodes of chest discomfort and "irregular heartbeat" over the past few days. The chest tightness and pressure radiates to her shoulder and back. She also describes a chest heaviness, lightheadedness, and feeling winded at times. Discomfort at its worst this morning was 8/10. Pain is now 5/10. She has history of coronary artery disease with angiography performed April 2022 demonstrating 50% stenosis of the mid LAD. No interventions were performed. 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 She denies missing any doses. Her last Xarelto dose was this morning. She also took aspirin 162 mg this morning. She is noted to be hypertensive during assessment. She is the primary historian. Chart was also reviewed including notes from the prior admission and the angiography report. Her bakery associate is Dr. Subramanian, transitioning to Dr. Kay. Her primary care provider is Dr. Forte. Allergies and Home Medications Allergies Coded Allergies: No Known Drug Allergies (Unverified , 04/26/22) Patient Home Medication List Home Medication List Reviewed: Yes Cholecalciferol (Vitamin D3) (Vitamin D3) 125 Mcg (5000 Unit) Capsule, 125 MCG PO HS, (Reported) Entered as Reported by: SKYE BURNETT on 04/26/22 1421 Famotidine (Acid Pest Management Supervisor (FAMOTIDINE)) 20 Mg Tablet, 20 MG PO DAILY, (Reported) Entered as Reported by: SKYE BURNETT on 04/26/22 1428 Hydrochlorothiazide (Hydrochlorothiazide) 25 Mg Tablet, 12.5 MG PO DAILY, (Reported) Entered as Reported by: SKYE BURNETT on 04/26/221424 Hydrocodone/Acetaminophen (Hydrocodone-Acetamin 5-325 mg) 5 Mg-325 Mg Tablet, 1 TAB PO Q4H PRN for PAIN-MODERATE (5-7) Prescribed by: BOBBY FORTE on 04/27/22 09 Levothyroxine Sodium (Levothyroxine Sodium) 50 Mcg Tablet, 50 MCG PO ESTEVES,MO,WE,FR,SA, (Reported) Entered as Reported by: SKYE BURNETT on 04/26/221424 Levothyroxine Sodium (Levothyroxine Sodium) 50 Mcg Tablet, 75 MCG PO ,, (Reported) Entered as Reported by: SKYE BURNETT on 04/26/221424 Melatonin (Melatonin) 10 Mg Tablet, 10 MG PO HS, (Reported) Entered as Reported by: SKYE BURNETT on 04/26/221424 Metoprolol Succinate (Metoprolol Succinate) 25 Mg Tab.er.24h, 25 MG PO HS, (Reported) Entered as Reported by: SKYE BURNETT on 04/26/221424 [place]-3/Dha/Epa/Fish Oil (Fish Oil 1,200 mg Softgel) 1,200 Mg (144 Mg-216 Mg) Capsule, 1,200 MG PO HS, (Reported) Entered as Reported by: SKYE BURNETT on 04/26/221424 Rivaroxaban (Xarelto Tablet) 15 Mg Tablet, 15 MG PO BID@0700,1900 Prescribed by: TERESSA SUBRAMANIAN JR, MD on 04/27/22 09 Rosuvastatin Calcium (Rosuvastatin Calcium) 20 Mg Tablet, 20 MG PO HS Prescribed by: BOBBY FORTE on 04/27/22 09 Review of Systems Review of Systems Constitutional: no symptoms reported; No fever EENTM: No Symptoms Reported Respiratory: See HPI Cardiovascular: See HPI Gastrointestinal: See HPI Genitourinary: No Symptoms Reported Musculoskeletal: no symptoms reported Skin: no symptoms reported Psychiatric/Neurological: No Symptoms Reported Endocrine: No Symptoms Reported Hematologic/Lymphatic: No Symptoms Reported Past Qywrvdk-Lrdihy-Ekamhe Hx Patient Social History Tobacco Use?: No Use of E-Cig and/or Vaping dev: No Substance use?: No Alcohol Use?: No Pt feels they are or have been: No Immunizations Up To Date First/Initial COVID19 Vaccinat: RECEIVED, UNK WHEN Second COVID19 Vaccination Adrian: RECEIVED, UNK WHEN COVID19 Vaccine Is Support Analyst: MICHAEL Servin Seasonal Allergies Seasonal Allergies: Yes Past Medical History Surgeries: Yes Cardiac (Cardiac angiography 2021 without intervention), Hysterectomy, Orthopedic Respiratory: Yes Pulmonary Embolism Currently Using CPAP: No Currently Using BIPAP: No Cardiac: Yes Coronary Artery Disease (50% stenosis mid LAD 2021, no intervention), Hypertension Neurological: No : No Genitourinary: No Gastrointestinal: Yes Gastroesophageal Reflux Musculoskeletal: Yes Arthritis Endocrine: Yes Hypothyroidsim HEENT: No Loss of Vision: Denies Hearing Impairment: Denies Cancer: No Psychosocial: No Integumentary: No Blood Disorders: No Adverse Reaction/Blood Tranf: No Family Medical History Heart Disease, Diabetes, Hypertension Physical Exam Vital Signs Vital Signs - First Documented 06/29/22 09:20 Temp 36.6 Pulse 81 Resp 20 B/P (MAP) 198/104 (135) Pulse Ox 98 O2 Delivery Room Air Capillary Refill : Height, Weight, BMI Height: '" Weight: lbs. oz. kg; 28.00 BMI Method: General Appearance: No Apparent Distress, WD/WN HEENT: PERRL/EOMI, Normal ENT Inspection Neck: Normal Inspection; No JVD Respiratory: Chest Non Tender, Lungs Clear, Normal Breath Sounds, No Accessory Muscle Use, No Respiratory Distress Cardiovascular: Regular Rate, Rhythm, No Edema, No Murmur, Normal Peripheral Pulses Gastrointestinal: Normal Bowel Sounds, Non Tender, Soft; No Distended Extremity: Normal Inspection, Non Tender, No Calf Tenderness, No Pedal Edema Neurologic/Psychiatric: Alert, Oriented x3, No Motor/Sensory Deficits, Normal Mood/Affect, sr. manager corporate communications II-XII Norm as Tested Skin: Normal Color, Warm/Dry Progress/Results/Core Measures Results/Orders Lab Results Laboratory Tests Test 06/29/22 09:27 06/29/22 09:42 06/29/22 11:29 Range/Units White Blood Count 10.1 4.3-11.0 10^3/uL Red Blood Count 4.99 3.80-5.11 10^6/uL Hemoglobin 15.4 11.5-16.0 g/dL Hematocrit 46 35-52 % Mean Corpuscular Volume 93 80-99 fL Mean Corpuscular Hemoglobin 31 25-34 pg Mean Corpuscular Hemoglobin Concent 33 32-36 g/dL Red Cell Distribution Width 12.5 10.0-14.5 % Platelet Count 239 130-400 10^3/uL Mean Platelet Volume 10.3 9.0-12.2 fL Immature Granulocyte % (Auto) 0 % Neutrophils (%) (Auto) 50 42-75 % Lymphocytes (%) (Auto) 41 12-44 % Monocytes (%) (Auto) 7 0-12 % Eosinophils (%) (Auto) 1 0-10 % Basophils (%) (Auto) 0 0-10 % Neutrophils # (Auto) 5.0 1.8-7.8 10^3/uL Lymphocytes # (Auto) 4.2 H 1.0-4.0 10^3/uL Monocytes # (Auto) 0.7 0.0-1.0 10^3/uL Eosinophils # (Auto) 0.1 0.0-0.3 10^3/uL Basophils # (Auto) 0.0 0.0-0.1 10^3/uL Immature Granulocyte # (Auto) 0.0 0.0-0.1 10^3/uL Prothrombin Time 21.8 H 12.2-14.7 SEC INR Comment 1.9 H 0.8-1.4 Activated Partial Thromboplast Time 42 H 24-35 SEC Sodium Level 136 135-145 MMOL/L Potassium Level 3.6 3.6-5.0 MMOL/L Chloride Level 102 98-107 MMOL/L Carbon Dioxide Level 20 L 21-32 MMOL/L Anion Gap 14 5-14 MMOL/L Blood Urea Nitrogen 12 7-18 MG/DL Creatinine 0.80 0.60-1.30 MG/DL Estimat Glomerular Filtration Rate 82 BUN/Creatinine Ratio 15 Glucose Level 117 H 70-105 MG/DL Calcium Level 10.1 8.5-10.1 MG/DL Corrected Calcium 8.5-10.1 MG/DL Magnesium Level 2.1 1.6-2.4 MG/DL Total Bilirubin 0.4 0.1-1.0 MG/DL Aspartate Amino Transf (AST/SGOT) 27 5-34 U/L Alanine Aminotransferase (ALT/SGPT) 41 0-55 U/L Alkaline Phosphatase 81 40-136 U/L Myoglobin 32.0 10.0-92.0 NG/ML Troponin I < 0.028 < 0.028 <0.028 NG/ML Total Protein 7.7 6.4-8.2 GM/DL Albumin 4.6 H 3.2-4.5 GM/DL Thyroid Stimulating Hormone (TSH) 1.97 0.35-4.94 UIU/ML Free Thyroxine 1.32 0.70-1.48 NG/DL Influenza Type A (RT-PCR) Not Detected Not Detecte Influenza Type B (RT-PCR) Not Detected Not Detecte SARS-CoV-2 RNA (RT-PCR) Not Detected Not Detecte My Orders Orders - KAYLI PRADHAN MD Cbc With Automated Diff (06/29/22 09:22) Magnesium (06/29/22 09:22) Chest 1 View, Ap/Pa Only (06/29/22 09:22) Ekg Tracing (06/29/22 09:22) Comprehensive Metabolic Panel (06/29/22 09:22) Myoglobin Serum (06/29/22 09:22) Protime With Inr (06/29/22 09:22) Partial Thromboplastin Time (06/29/22 09:22) O2 (06/29/22 09:22) Monitor-Rhythm Ecg Trace Only (06/29/22 09:22) Lipid Panel (06/30/22 06:00) Ed Iv/Invasive Line Start (06/29/22 09:22) Troponin I Den (06/29/22 09:22) Covid 19 Inhouse Test (06/29/22 09:36) Influenza A And B By Pcr (06/29/22 09:36) Nitroglycerin 0.4 Mg Btl 25's (Nitrostat (06/29/22 09:45) Aspirin Chewable Tablet (Baby Aspirin Ch (06/29/22 09:45) Ondansetron Injection (Zofran Injectio (06/29/22 09:45) Thyroid Stimulating Hormone (06/29/22 09:36) Free T4 (Free Thyroxine) (06/29/22 09:36) Troponin I Den (06/29/22 11:30) Ondansetron Injection (Zofran Injectio (06/29/22 11:15) Lidocaine 2% Viscous 15 Ml (Xylocaine Vi (06/29/22 11:15) Antacid Suspension (Mylanta Suspension (06/29/22 11:15) Medications Given in ED Current Medications Medications Dose Ordered Sig/Samuel Route Start Time Stop Time Status Last Admin Dose Admin Al Hydrox/Mg Hydrox/Simethicone 30 ml ONCE ONCE PO 06/29/22 11:15 06/29/22 11:16 DC 06/29/22 11:14 30 ML Aspirin 162 mg ONCE ONCE PO 06/29/22 09:45 06/29/22 09:46 DC 06/29/22 09:44 162 MG Lidocaine HCl 15 ml ONCE ONCE PO 06/29/22 11:15 06/29/22 11:16 DC 06/29/22 11:14 15 ML Nitroglycerin 0.4 mg UD PRN SL 06/29/22 09:45 06/29/22 09:57 DC 06/29/22 09:55 0.4 MG Ondansetron HCl 4 mg ONCE ONCE IVP 06/29/22 09:45 06/29/22 09:46 DC 06/29/22 09:43 4 MG Ondansetron HCl 4 mg ONCE ONCE IVP 06/29/22 11:15 06/29/22 11:16 DC 06/29/22 11:14 4 MG Vital Signs/I&O 06/29/22 06/29/22 06/29/22 09:20 09:49 11:08 Temp 36.6 Pulse 81 76 67 Resp 20 18 B/P (MAP) 198/104 (135) 156/91 (112) 138/68 (91) Pulse Ox 98 93 98 O2 Delivery Room Air Room Air Room Air Blood Pressure Mean: 135 Progress Progress Note : Time: 09:44 Progress Note Chest pain that work-up is being pursued. Patient was interviewed and examined. Patient will be treated with aspirin 162 mg and a trial of nitroglycerin. She will then be reassessed. I am adding COVID and influenza screening as well. Zofran is being given for her nausea. Remainder of work-up and treatment will be determined by her response to these interventions and results of her labs. Initial ECG Impression Date: Jun 29, 2022 Initial ECG Impression Time: 09:23 Initial ECG Rate: 83 Initial ECG Rhythm: Normal Sinus Initial ECG Intervals: Normal Initial ECG Impression: Normal Comment Normal sinus rhythm with no ST elevation or depression. No abnormal intervals or axis deviation. Diagnostic Imaging Diagonstic Imaging: Xray Plain Films/CT/US/NM/MRI: chest Comments NAME: INESSA HAYS [facility] REC#: [id number] PT STATUS: REG ER : 1960 PHYSICIAN: KAYLI PRADHAN MD ADMIT DATE: 06/29/22/ER Signed Date of Exam:06/29/22 CHEST 1 VIEW, AP/PA ONLY CHEST 1 VIEW, AP/PA ONLY Indication: Chest pain. Comparison: None available. Findings: No focal airspace disease in the visualized lungs. No pleural effusion or pneumothorax. Normal cardiomediastinal silhouette. Impression: 1. No acute cardiopulmonary process by portable radiography. Dictated by: Dictated on workstation # [id number] Dict: 06/29/22 0955 Trans: 06/29/2256 [facility] [id number] Interpreted by: CALI MCDONOUGH MD Electronically signed by: CALI MCDONOUGH MD 06/29/22 0956 Departure Impression Primary Impression: Atypical chest pain Additional Impression: History of coronary artery disease Disposition: HOME, SELF-CARE Condition: Improved Departure-Patient Inst. Decision time for Depature: 12:29 Referrals: BOBBY FORTE MD (PCP/Family) Primary Care Physician MINISTERIO KAY MD Patient Instructions: Acid Reflux and Gastroesophageal Reflux Disease in Adults, Chest Pain That Is Not Caused by the Heart (DC), Coronary Artery Disease Add. Discharge Instructions: Your cardiac work-up in the emergency room was unremarkable. However, because of your history of coronary artery disease, you should follow-up with Dr. Kay as soon as possible. Please contact his office and ask if an expedited appointment can be arranged since you were seen in the ER for chest pain. Take aspirin 81 mg daily in the meantime. Increase your Pepcid (or generic famotidine) to 20 mg twice daily. If this does not improve your symptoms after several days, you may add omeprazole 20 mg daily. These medications may be purchased [id number]. Avoid the following: Eating large meals, eating close to bedtime, caffeine, carbonation, chocolate, citrus fruits and juices, tomato products, alcohol, tobacco, mints, spicy foods, fatty/greasy foods, NSAID medications such as ibuprofen or naproxen, and anything else you know irritates your stomach. Elevating the head of your bed or using several pillows to elevate your head above your stomach may be helpful in reducing acid reflux. Please also follow-up with a primary care provider soon as possible. Discussed possible referral to a surgeon or mental health director for endoscopy to visually evaluate your esophagus and stomach. Please return to the emergency room if you have worsening symptoms despite following these instructions. All discharge instructions reviewed with patient and/or family. Voiced understanding. Copy Copies To 1: MINISTERIO KAY MD Copies To 2: BOBBY FORTE MD, JOSHUA T MD Jun 29, 2022 09:45
[2022-06-29 09:46] LABS: BILIRUBIN,TOTAL 0.4 MG/DL (0.1-1.0)
[2022-06-29 09:47] LABS: ALKALINE PHOSPHATASE 81 U/L (40-136)
[2022-06-29 09:48] LABS: GFR ESTIMATED 82
[2022-06-29 09:49] LABS: BUN/CREATININE RATIO 15
[2022-06-29 09:50] LABS: ALANINE AMINOTRANSFERASE 41 U/L (0-55); MAGNESIUM 2.1 MG/DL (1.6-2.4)
--- NOTE | 2022-06-29 09:57 | Diagnostic Imaging Report ---
CHEST 1 VIEW, AP/PA ONLY Indication: Chest pain. Comparison: None available. Findings: No focal airspace disease in the visualized lungs. No pleural effusion or pneumothorax. Normal cardiomediastinal silhouette. Impression: 1. No acute cardiopulmonary process by portable radiography. Dictated by: Dictated on workstation # [id number]
[2022-06-29 10:19] LABS: FREE T4 (FREE THYROXINE) 1.32 NG/DL (0.70-1.48)
[2022-06-29] MEDS ORDERED: LIDOCAINE 2% VISCOUS 15 ML UDC PO ONE (11:15)
[2022-06-29] MEDS ORDERED: ANTACID SUSP 30 ML UDC (MYLANTA) PO ONE (11:15)
[2022-06-29 12:40] VITALS: BP 129/75
== END 2022-06-29 12:45 | disposition home or self-care (01) ==
LOC: EDUNIT# 09:18 → ER 09:20
DX: R07.89 Other chest pain (principal); I25.10 Atherosclerotic heart disease of native coronary artery without angina pectoris; Z79.01 Long term (current) use of anticoagulants; Z20.822 Contact with and (suspected) exposure to COVID-19
CPT/HCPCS: 36415; 71045; 80053; 83735; 83874; 84439; 84443; 84484; 85025; 85610; 85730; 87636; 93005; 93041

== ENCOUNTER 2022-08-14 10:46 | Outpatient (RCR) | payer BC | END 2022-09-07 | disposition home or self-care (01) | LOC: ONC 10:46 | PROVIDERS: ATTEND Internal Medicine Hematology & Oncology | DX: Z53.9 Procedure and treatment not carried out, unspecified reason (principal) ==

== ENCOUNTER 2022-09-21 10:09 | Outpatient (RCR) | payer BC | END 2022-10-07 | LOC: ONC 10:09 | PROVIDERS: ATTEND Internal Medicine Hematology & Oncology | DX: Z86.711 Personal history of pulmonary embolism (principal); I25.10 Atherosclerotic heart disease of native coronary artery without angina pectoris; E78.2 Mixed hyperlipidemia; I10 Essential (primary) hypertension ==

== ENCOUNTER → 2023-05-13 | Outpatient (CLI) | payer MEDICARE ==
[~2023-05-13] MED LIST changes: -CELE-63 PO; +CELE-91 PO; +FAMO-356 PO; -FAMO20TA3 PO; -ROSU20TA32 PO; +ROSU20TA73 PO
--- NOTE | 2023-05-13 15:24 | Diagnostic Imaging Report ---
EXAMINATION: 3D bilateral screening mammogram with CAD. INDICATION: Screening. COMPARISON: This study was compared to the prior exams of 06/30/2020 and 09/09/2018. PERSONAL HISTORY: At this time, there are no current complaints. FINDINGS: The breasts are heterogenously dense which may obscure small masses. When compared to the previous study, there does not appear to have been any significant change. There is no primary or secondary sign of malignancy noted. IMPRESSION: There is no evidence for malignancy. ACR BI-RADS Category 1: Negative. Result letter will be mailed to the patient. Note: At least 10% of breast cancer is not imaged by mammography. Dictated by: Dictated on workstation # [id number]
== END ==
LOC: RAD 09:15
PROVIDERS: ATTEND Family Medicine
DX: Z12.31 Encounter for screening mammogram for malignant neoplasm of breast (principal)
CPT/HCPCS: 77063; 77067